=== PATIENT | male | born 1995 | race Caucasian/White ===

== ENCOUNTER 2017-02-06 01:29 | Emergency (ER) | payer OTHER ==
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
[2017-02-06 01:47] VITALS: BP 147/91; PULSE 78; RESP 18; TEMP 98.1; O2SAT 96
== END 2017-02-06 01:49 | disposition home or self-care (01) ==
PROC: 0HQHXZZ Repair Right Upper Leg Skin, External Approach (ICD-10-PCS; principal; 2017-02-06)
DX: S71.111A Laceration without foreign body, right thigh, initial encounter (principal); V48.0XXA Car driver injured in noncollision transport accident in nontraffic accident, initial encounter; Y92.410 Unspecified street and highway as the place of occurrence of the external cause; Y99.8 Other external cause status; Y93.89 Activity, other specified